=== PATIENT | female | born 1965 | race Caucasian/White ===

== ENCOUNTER → 2016-09-09 | Outpatient (CLI) | payer BC ==
[~2016-09-09] MED LIST: HYDR-5688 PO; LISI-725 PO; MELO15TA4 PO; MULTTAB58 PO; PRT40 PO; SIMV-150 PO; TPRSR/25 PO; VALA1TAB PO; VTMD1000 PO
--- NOTE | 2016-09-10 14:52 | MAMMOGRAPHY REPORT ---
BILATERAL DIGITAL SCREENING MAMMOGRAM TOMOSYNTHESIS WITH CAD: 09/09/2016 CLINICAL HISTORY: Routine screening. Patient has no complaints. TECHNIQUE: Breast tomosynthesis in addition to standard 2D mammography was performed. Current study was also evaluated with a Computer Aided Detection (CAD) system. COMPARISON: Comparison is made to exams dated: 03/29/2012 mammogram - [facility] a nd 06/16/2007. BREAST COMPOSITION: The tissue of both breasts is almost entirely fatty. FINDINGS: No suspicious masses, calcifications, or areas of architectural distortion are noted in e ither breast. There has been no significant interval change compared to prior exams. IMPRESSION: ACR BI-RADS CATEGORY 1: NEGATIVE There is no mammographic evidence of malignancy. A 1 year screening mammogram is recommended. The p atient will receive written notification of the results. Approximately 10% of breast cancers are not detected with mammography. A negative mammographic repor t should not delay biopsy if a clinically suggestive mass is present. Dyana Denson M.D. ah/:09/10/2016 07:25:48 Powder Worker: Jennifer Le RT(R)(M), [facility] letter sent: Normal 1/2 BI-RADS Code: ACR BI-RADS Category 1: Negative
== END | disposition home or self-care (01) ==
LOC: C.MAMM 17:08
PROVIDERS: ATTEND Nurse Practitioner Family
DX: Z12.31 Encounter for screening mammogram for malignant neoplasm of breast (principal)

== ENCOUNTER → 2017-04-19 | Outpatient (CLI) | payer BC ==
--- NOTE | 2017-04-19 18:48 | DIAGNOSTIC IMAGING REPORT ---
LEFT HIP UNILATERAL 2 VIEWS HISTORY: 51 years-old Female PAIN IN LEFT HIP acute left hip pain without reported trauma. Initial exam. COMPARISON: None available. TECHNIQUE: 2 views of the left hip. FINDINGS: Probable phleboliths are seen within the pelvis. The imaged left hemipelvis appears intact. Minimal left sacroiliac joint degenerative changes are noted. No significant degenerative changes are seen involving the left femoral acetabular joint which is located. No fracture identified. IMPRESSION: No acute fracture, dislocation or significant degenerative changes. The above report was generated using voice recognition software. It may contain grammatical, syntax or spelling errors. Electronically signed by: William Longoria M.D. 04/19/2017 6:47 PM Dictated Date/Time: 04/19/2017 6:46 PM
== END | disposition home or self-care (01) ==
LOC: C.RAD 15:36
PROVIDERS: ATTEND Nurse Practitioner Family
DX: M25.552 Pain in left hip (principal)

== ENCOUNTER 2017-05-15 10:12 | Inpatient (IN) | payer BC ==
[~2017-05-15] VITALS: Ht 165.1 cm; Wt 80.0 kg
[~2017-05-15 10:12] MED LIST changes: -HYDR-5688 PO; -PRT40 PO; -TPRSR/25 PO
[2017-05-15] MEDS ORDERED: ONDANSETRON 8 MG/54 ML D5W IV STA (10:37)
[2017-05-15] MEDS ORDERED: SODIUM CHLORIDE 0.9% 1000ML 1,000 ML IV STA ×2 (10:37→13:13)
[2017-05-15] MEDS ORDERED: FAMOTIDINE IV INJ 20 MG in DEXTROSE 5% 100ML 100 ML IV STA (10:37)
--- NOTE | 2017-05-15 10:38 | EMERGENCY ROOM VISIT NOTE ---
History Report prepared by Sandy: Ethel Rogel Under the Supervision of: Dr. Arely Escalera D.O. First contact with patient: 10:22 Chief Complaint: ABDOMINAL PAIN Stated Complaint: ABD. PAIN, VOMITING History of Present Illness The patient is a 51 year old female who presents to the Emergency Room with complaints of intermittent abdominal pain and pressure beginning 1 week ago. The patient states that she has a history of acid reflux and notes that 1 week ago she woke up in the middle of the night from indigestion and nausea. She reports that she had nausea and no vomiting at the time and states that her bowel movements have been alternating between soft and hard. She notes that she has been more stressed lately at work and her acid reflux has not been good. The patient complains of "acid churning" in her stomach, abdominal pressure, back pressure, chills, and sweats. She states that she had 4 episodes of vomiting before coming into the ED today. She denies any leg swelling, fevers, black stool, bloody stools, recent illness, cough, and recent cold. Source of History: patient Onset: 1 week ago Position: abdomen Quality: pressure Timing: intermittent Associated Symptoms: + chills, + nausea, + vomiting, + back pain, No fevers , No cough Note: She denies any leg swelling, black stool, bloody stools, recent illness, and recent cold. Review of Systems See HPI for pertinent positives & negatives. A total of 10 systems reviewed and were otherwise negative. Past Medical & Surgical Medical Problems: (1) Acid reflux (2) Acute cholecystitis (3) Gallstone pancreatitis Family History No pertinent family history stated. Social History Smoking Status: Never Smoker Marital Status: single Occupation Status: employed Current/Historical Medications Scheduled Cholecalciferol (Vitamin D3), 2,000 INTER.UNIT PO QAM Meloxicam (Mobic), 15 MG PO QAM Metoprolol Succinate (Metoprolol Succinate ER), 12.5 MG PO DAILY Multiple Vitamin (Multivitamin), 1 TAB PO QAM Simvastatin (Simvastatin), 1 TAB PO HS Scheduled PRN Valacyclovir (Valtrex), 2 GM PO DAILY PRN for COLD SORES Allergies Coded Allergies: No Known Allergies (Unverified , 10/03/15) Physical Exam Vital Signs Date Time Temp Pulse Resp B/P (MAP) Pulse Ox O2 Delivery O2 Flow Rate FiO2 05/15/17 15:15 95 Room Air 05/15/17 14:34 71 05/15/17 14:24 70 17 116/55 95 Room Air 05/15/17 13:52 65 14 107/63 96 Room Air 05/15/17 13:09 67 20 130/82 97 Room Air 05/15/17 12:51 47 19 138/74 95 Room Air 05/15/17 11:38 45 14 138/64 100 Room Air 05/15/17 10:47 44 05/15/17 10:17 36.5 61 16 126/70 98 Room Air Physical Exam GENERAL: alert, well appearing, well nourished, no distress, non-toxic EYE EXAM: normal conjunctiva, PERRL and EOM's grossly intact OROPHARYNX: no exudate, no erythema, lips, buccal mucosa, and tongue normal and mucous membranes are moist NECK: supple, no nuchal rigidity, no adenopathy, non-tender LUNGS: Clear to auscultation. Normal chest wall mechanics HEART: no murmurs, S1 normal and S2 normal ABDOMEN: abdomen soft, some upper abdominal epigastric tenderness, normo-active bowel sounds, no masses, no rebound or guarding. BACK: Back is symmetrical on inspection and there is no deformity, no midline tenderness, no CVA tenderness. SKIN: no rashes and no bruising UPPER EXTREMITIES: upper extremities are grossly normal. LOWER EXTREMITIES: No pitting edema. NEURO EXAM: Normal sensorium, cranial nerves II-XII grossly intact, normal speech, no gross weakness of arms, no gross weakness of legs. Medical Decision & Procedures ER Provider Diagnostic Interpretation: Radiology results have been interpreted by the radiologist and reviewed by me. ABDOMEN LIMITED (US) FINDINGS: Pancreas: Largely obscured due to overlying bowel gas. Liver: Moderately hyperechogenic parenchyma with partial obscuration of the right hemidiaphragm, likely indicating moderate steatosis. The liver measures cm in maximal sagittal dimension. No sonographic evidence of hepatic mass. Main portal vein patent with normal directional flow. Biliary: No intrahepatic biliary ductal dilatation. Common bile duct measures up to 7 mm in diameter. Gallbladder: Gallbladder distended containing multiple gallstones. Mild gallbladder wall thickening and small amount of air cholecystic fluid. The gallbladder mucosa is somewhat irregular in areas. Right kidney: Normal in appearance. No hydronephrosis. Ascites: None. IMPRESSION: 1. Findings consistent with acute cholecystitis. 2. Hepatic steatosis. Electronically signed by: Remy Mario M.D. 05/15/2017 2:19 PM Dictated Date/Time: 05/15/2017 2:16 PM Laboratory Results 05/15/17 11:36 Red Blood Count 5.05, Mean Corpuscular Volume 84.4, Mean Corpuscular Hemoglobin 28.3, Mean Corpuscular Hemoglobin Concent 33.6, Mean Platelet Volume 9.8, Neutrophils (%) (Auto) 75.2, Lymphocytes (%) (Auto) 14.5, Monocytes (%) (Auto) 9.7, Eosinophils (%) (Auto) 0.2, Basophils (%) (Auto) 0.2, Neutrophils # (Auto) 6.46, Lymphocytes # (Auto) 1.25, Monocytes # (Auto) 0.83, Eosinophils # (Auto) 0.02, Basophils # (Auto) 0.02 05/15/17 11:36 Test 05/15/17 11:36 05/15/17 11:40 05/15/17 12:44 White Blood Count 8.60 K/uL (4.8-10.8) Red Blood Count 5.05 M/uL (4.2-5.4) Hemoglobin 14.3 g/dL (12.0-16.0) Hematocrit 42.6 % (37-47) Mean Corpuscular Volume 84.4 fL (80-100) Mean Corpuscular Hemoglobin 28.3 pg (25-34) Mean Corpuscular Hemoglobin Concent 33.6 g/dl (32-36) Platelet Count 237 K/uL (130-400) Mean Platelet Volume 9.8 fL (7.4-10.4) Neutrophils (%) (Auto) 75.2 % Lymphocytes (%) (Auto) 14.5 % Monocytes (%) (Auto) 9.7 % Eosinophils (%) (Auto) 0.2 % Basophils (%) (Auto) 0.2 % Neutrophils # (Auto) 6.46 K/uL (1.4-6.5) Lymphocytes # (Auto) 1.25 K/uL (1.2-3.4) Monocytes # (Auto) 0.83 K/uL (0.11-0.59) Eosinophils # (Auto) 0.02 K/uL (0-0.5) Basophils # (Auto) 0.02 K/uL (0-0.2) RDW Standard Deviation 39.7 fL (36.4-46.3) RDW Coefficient of Variation 13.1 % (11.5-14.5) Immature Granulocyte % (Auto) 0.2 % Immature Granulocyte # (Auto) 0.02 K/uL (0.00-0.02) Anion Gap 10.0 mmol/L (3-11) Est Creatinine Clear Calc Drug Dose 98.5 ml/min Estimated GFR () 115.2 Estimated GFR (Non- 99.4 BUN/Creatinine Ratio 30.1 (10-20) Calcium Level 9.3 mg/dl (8.5-10.1) Total Bilirubin 0.9 mg/dl (0.2-1) Aspartate Amino Transf (AST/SGOT) 490 U/L (15-37) Alanine Aminotransferase (ALT/SGPT) 569 U/L (12-78) Alkaline Phosphatase 123 U/L (45-117) Troponin I < 0.015 ng/ml (0-0.045) Total Protein 7.5 gm/dl (6.4-8.2) Albumin 3.6 gm/dl (3.4-5.0) Globulin 3.9 gm/dl (2.5-4.0) Albumin/Globulin Ratio 0.9 (0.9-2) Amylase Level 3546 U/L (25-115) Lipase 07932 U/L (73-393) Human Chorionic Gonadotropin, Qual NEG (NEG) Hepatitis C Antibody Screen NEG (NEG) Lactic Acid Level 0.7 mmol/L (0.4-2.0) Urine Color YELLOW Urine Appearance CLEAR (CLEAR) Urine pH 5.0 (4.5-7.5) Urine Specific [place] 1.018 (1.000-1.030) Urine Protein NEG (NEG) Urine Glucose (UA) NEG (NEG) Urine Ketones 1+ (NEG) Urine Occult Blood TRACE (NEG) Urine Nitrite NEG (NEG) Urine Bilirubin NEG (NEG) Urine Urobilinogen NEG (NEG) Urine Leukocyte Esterase NEG (NEG) Urine WBC (Auto) 1-5 /hpf (0-5) Urine RBC (Auto) 0-4 /hpf (0-4) Urine Hyaline Casts (Auto) 0 /lpf (0-5) Urine Epithelial Cells (Auto) 0-5 /lpf (0-5) Urine Bacteria (Auto) NEG (NEG) Laboratory results per my review. Medications Administered Medications (Trade) Dose Ordered Sig/Mae Route Start Time Stop Time Status Last Admin Dose Admin Sodium Chloride 1,000 ml @ 999 mls/hr Q1H1M STAT IV 05/15/17 10:37 05/15/17 11:37 DC 05/15/17 11:33 999 MLS/HR Ondansetron HCl (Zofran 8mg Iv) 8 mg NOW STAT IV 05/15/17 10:37 05/15/17 10:40 DC 05/15/17 11:34 8 MG Famotidine 20 mg/ Dextrose 102 ml @ 200 mls/hr NOW STAT IV 05/15/17 10:37 05/15/17 11:07 DC 05/15/17 11:34 200 MLS/HR Al Hydroxide/Mg Hydroxide (Maalox Susp) 15 ml NOW STAT PO 05/15/17 11:05 05/15/17 11:06 DC 05/15/17 11:34 15 ML Morphine Sulfate (MoRPHine SULFATE INJ) 4 mg NOW STAT IV 05/15/17 12:57 05/15/17 12:58 DC 05/15/17 13:05 4 MG Sodium Chloride 1,000 ml @ 125 mls/hr Q8H STAT IV 05/15/17 13:13 05/15/17 17:12 DC 05/15/17 13:50 125 MLS/HR Hydromorphone HCl (Dilaudid Inj) 0.5 mg NOW STAT IV 05/15/17 13:44 05/15/17 13:45 DC 05/15/17 13:50 0.5 MG Hydromorphone HCl (Dilaudid Inj) 0.5 mg NOW STAT IV 05/15/17 14:30 05/15/17 14:31 DC 05/15/17 14:38 0.5 MG Piperacillin Sod/ Tazobactam Sod (Zosyn Iv) 4.5 gm NOW STAT IV 05/15/17 14:49 05/15/17 15:30 DC 05/15/17 15:52 4.5 GM ECG Indication: abdominal pain Rate (beats per minute): 45 Rhythm: sinus bradycardia Findings: no acute ischemic change, other (normal axis, normal intervals) ED Course 1022: The patient was evaluated in room A2. A complete history and physical exam was performed. 1037: Famotidine 20mg/Dextrose 102ml @ 200mls/hr IV, Zofran 8mg IV, Sodium Chloride 1000 ml @ 999 mls/hr IV. 1105: Maalox Susp 1ml PO. 1257: Morphine Sulfate 4mg IV. 1313: I reevaluated and updated the patient. She is still having pain. 1313: Sodium Chloride 1000 ml @ 125 mls/hr IV. 1344: Dilaudid Inj 0.5mg IV. 1430: I updated the patient about her results. She is still having pain. 1430: Dilaudid Inj 0.5mg IV. 1436: I reviewed the patient's case with Dr. Padgett of Surgery. 1449: Zosyn IV 4.5gm IV. 1500: Zosyn 1ea PRN N/A Consult. 1505: I reviewed the patient's case with Dr. Liz of [facility]. He will evaluate the patient for further management. 1512: Upon reevaluation, the patient is doing well. I discussed the findings and the treatment plan with the patient. She expresses agreement and understanding. I spoke with Dr. Liz of the [facility] Hospitalist Service. She will be evaluated for further management. Medical Decision Differential diagnosis: Etiologies such as appendicitis, diverticulitis, PUD, biliary pathology, UTI, pancreatitis, obstruction, mesenteric ischemia, aortic pathology, infections, inflammatory bowel disease, renal colic, as well as others were entertained. Pt with acute pancreatitis, likely from gallstones/biliary disease. No bacteremia/sepsis. Doubt other acute GI pathology. Doubt ascending cholangitis. Doubt perf. Pt with stable VS. Medication Reconcilliation Current Medication List: was personally reviewed by me Blood Pressure Screening Patient's blood pressure: Normal blood pressure Blood pressure disposition: Did not require urgent referral Consults Time Called: 1430 Consulting Physician: Dr. Padgett - Surgery Returned Call: [phone] I reviewed the patient's case with Dr. Padgett of Surgery. Additional Consults: Time Called: 1501 Consulted Physician: Dr. Liz - [facility] Returned Call: [phone] Additional Comments: I reviewed the patient's case with Dr. Liz of [facility]. He will evaluate the patient for further management. Impression Primary Impression: Pancreatitis Additional Impressions: Cholecystitis Abdominal pain Scribe Attestation The scribe's documentation has been prepared under my direction and personally reviewed by me in its entirety. I confirm that the note above accurately reflects all work, treatment, procedures, and medical decision making performed by me. Departure Information Dispostion Being Evaluated By Hospitalist Referrals Carrie Rodriguez C.R.N.PAlycia (PCP) Patient Instructions My [facility] Problem Qualifiers Primary Impression: Pancreatitis Chronicity: acute Pancreatitis type: biliary Acute pancreatitis complication: unspecified Qualified Codes: K85.10 - Biliary acute pancreatitis without necrosis or infection Additional Impressions: Abdominal pain Abdominal location: epigastric Qualified Codes: R10.13 - Epigastric pain
[2017-05-15] MEDS ORDERED: ALUMINUM/MAGNESIUM SUSP 30 ML UDC PO STA (11:05)
[2017-05-15] MEDS ORDERED: TPRSR/25 PO (11:07)
[2017-05-15 11:58] LABS: HEMATOCRIT 42.6 % (37-47); MEAN CELL VOLUME 84.4 fL (80-100); MEAN CORPUSCULAR HEMOGLOBIN 28.3 pg (25-34); MEAN CORPUSCULAR HGB CONC 33.6 g/dl (32-36); MEAN PLATELET VOLUME 9.8 fL (7.4-10.4); PLATELET COUNT 237 K/uL (130-400); RED BLOOD COUNT 5.05 M/uL (4.2-5.4)
[2017-05-15 12:15] LABS: ALT/SGPT 569 U/L (12-78); BLOOD UREA NITROGEN 21 mg/dl (7-18); BUN/CREATININE RATIO 30.1 (10-20); CALCIUM 9.3 mg/dl (8.5-10.1); CARBON DIOXIDE 22 mmol/L (21-32); CHLORIDE 107 mmol/L (98-107); CREATININE 0.69 mg/dl (0.60-1.20); GLUCOSE 129 mg/dl (70-99); POTASSIUM 3.7 mmol/L (3.5-5.1); SODIUM 139 mmol/L (136-145)
[2017-05-15 12:20] LABS: ALB/GLOB RATIO 0.9 (0.9-2); ALKALINE PHOSPHATASE 123 U/L (45-117); AST/SGOT 490 U/L (15-37)
[2017-05-15 12:23] LABS: PREG INTERNAL NEGATIVE QC NEG CLEAR BACKGROUND; PREG INTERNAL POSITIVE QC POS CONTROL LINE
[2017-05-15 12:40] LABS: BASO % 0.2 %; BASO ABS # 0.02 K/uL (0-0.2); COMPLETE YES; EOS % 0.2 %; IG% 0.2 %; LYMPH % 14.5 %; LYMPH ABS # 1.25 K/uL (1.2-3.4); MONO % 9.7 %; NEUT % 75.2 %
[2017-05-15] MEDS ORDERED: MoRPHine SULFATE 4 MG/ML 1 ML CARP\\VIAL IV STA (12:57)
[2017-05-15 13:18] LABS: URINE APPEARANCE CLEAR (CLEAR); URINE BILIRUBIN NEG (NEG); URINE COLOR YELLOW; URINE EPITHELIAL CELL AUTO 0-5 /lpf (0-5); URINE NITRITE NEG (NEG); URINE SPECIFIC GRAVITY 1.018 (1.000-1.030); UROBILINOGEN NEG (NEG); ZZUR CULT IF INDIC CLEAN CATCH NO
[2017-05-15 13:27] LABS: MANUAL MICROSCOPIC REQUIRED? NO; REVIEW REQ? NO
[2017-05-15] MEDS ORDERED: HYDROmorphone INJ 0.5 MG/0.5 ML SYR IV STA ×2 (13:44→14:30)
--- NOTE | 2017-05-15 14:21 | DIAGNOSTIC IMAGING REPORT ---
ABDOMEN LIMITED (US) CLINICAL HISTORY: 51 years-old Female presenting with abd pain, elevated lft's. TECHNIQUE: Real-time grayscale and limited color Doppler ultrasound imaging of the abdomen limited to the right upper quadrant was performed. COMPARISON: None. FINDINGS: Pancreas: Largely obscured due to overlying bowel gas. Liver: Moderately hyperechogenic parenchyma with partial obscuration of the right hemidiaphragm, likely indicating moderate steatosis. The liver measures cm in maximal sagittal dimension. No sonographic evidence of hepatic mass. Main portal vein patent with normal directional flow. Biliary: No intrahepatic biliary ductal dilatation. Common bile duct measures up to 7 mm in diameter. Gallbladder: Gallbladder distended containing multiple gallstones. Mild gallbladder wall thickening and small amount of air cholecystic fluid. The gallbladder mucosa is somewhat irregular in areas. Right kidney: Normal in appearance. No hydronephrosis. Ascites: None. IMPRESSION: 1. Findings consistent with acute cholecystitis. 2. Hepatic steatosis. Electronically signed by: Remy Mario M.D. 05/15/2017 2:19 PM Dictated Date/Time: 05/15/2017 2:16 PM
[2017-05-15] MEDS ORDERED: PIPERACILLIN/TAZOBACTAM 4.5 GM/100ML D5W IV STA (14:49)
[2017-05-15] MEDS ORDERED: PIPERACILL/TAZOBAC CONSULT ACTIVE PRN (15:00)
[2017-05-15 15:15] VITALS: O2SAT 95; Ht 165.1 cm; Wt 80.0 kg
[2017-05-15] MEDS ORDERED: PIPERACILLIN/TAZOBACTAM 4.5 GM/100ML D5W ONE (15:30)
[2017-05-15] MEDS ORDERED: ONDANSETRON INJ 2 MG/ML 2 ML VIAL IV PRN (15:45)
--- NOTE | 2017-05-15 16:02 | History and Physical ---
History & Physical Date & Time of Service: May 15, 2017 at 15:50 Chief Complaint: Abd. Pain, Vomiting Primary Care Physician: Carrie Rodriguez C.R.N.P. History of Present Illness Source: patient The patient is a 51-year-old female who presents to the emergency department with worsening intermittent abdominal pain, pressure, chills, sweats and nausea that began about one week prior to arrival. She has not had any vomiting until having 4 episodes prior to coming into the ED today. She does report a change in her bowel movements alternating between soft and hard. She felt that her acid reflux have been worse in general recently due to work stress. She has not had any recent travels or sick exposures Past Medical/Surgical History Medical Problems: (1) Acid reflux Status: Chronic Family History Noncontributory Social History Smoking Status: Never Smoker Smokeless Tobacco Use: No Alcohol Use: none Drug Use: none Marital Status: single Occupational Status: employed Immunizations History of Influenza Vaccine: Unknown History of Tetanus Vaccine?: Unknown History of Pneumococcal: Unknown History of Hepatitis B Vaccine: Unknown Multi-Drug Resistant Organisms History of MDRO: No Allergies Coded Allergies: No Known Allergies (Unverified , 10/03/15) Home Medications Scheduled Cholecalciferol (Vitamin D3), 2,000 INTER.UNIT PO QAM Meloxicam (Mobic), 15 MG PO QAM Metoprolol Succinate (Metoprolol Succinate ER), 12.5 MG PO DAILY Multiple Vitamin (Multivitamin), 1 TAB PO QAM Simvastatin (Simvastatin), 1 TAB PO HS Scheduled PRN Valacyclovir (Valtrex), 2 GM PO DAILY PRN for COLD SORES Review of Systems The patient denies chest pain, palpitations, shortness of breath, cough, lower extremity swelling, vision change, hearing change, sore throat, blood in urine or stool, dysuria, urinary frequency or urgency, lightheadedness , dizziness, headache, memory loss, rash, abnormal bruising or bleeding, imbalance, focal or generalized weakness, numbness or tingling in arms or legs, generalized arthralgias or myalgias, back or neck pain, or night sweats. The review of systems is otherwise negative other than for that already noted above, and at least 10 systems have been reviewed. Physical Exam Vital Signs Date Time Temp Pulse Resp B/P (MAP) Pulse Ox O2 Delivery O2 Flow Rate FiO2 05/15/17 15:15 95 Room Air 05/15/17 14:34 71 05/15/17 14:24 70 17 116/55 95 Room Air 05/15/17 13:52 65 14 107/63 96 Room Air 05/15/17 13:09 67 20 130/82 97 Room Air 05/15/17 12:51 47 19 138/74 95 Room Air 05/15/17 11:38 45 14 138/64 100 Room Air 05/15/17 10:47 44 05/15/17 10:17 36.5 61 16 126/70 98 Room Air The patient is awake, alert and oriented 3, looks ill, normocephalic and atraumatic, lying in bed and in no acute distress. HEENT--PERRL, EOMI, mucous membranes and oropharynx dry. Neck--supple, no JVD or bruits, thyroid normal, trachea midline, no adenopathy. Heart--normal S1 and S2, no extra beats, no murmurs, rubs or gallops. Lungs--clear bilaterally with good air movement, no respiratory distress, no accessory muscle use. Abdomen--normal bowel sounds and soft, tender right upper quadrant and epigastric discomfort. Nondistended, no hernias or masses, no organomegaly. Extremities--no cyanosis, clubbing or edema. There are good distal pulses b/l. Dermatologic--normal skin turgor, normal color, warm and dry, no abnormal lymph nodes, no rash. Neurologic--cranial nerves II through XII grossly intact, motor and sensory examination normal. Rheumatologic--normal range of motion, nontender, muscles and joints. Psychiatric--normal affect. Diagnostics Laboratory Results Results Past 24 Hours Test 05/15/17 11:36 05/15/17 11:40 05/15/17 12:44 Range/Units White Blood Count 8.60 4.8-10.8 K/uL Red Blood Count 5.05 4.2-5.4 M/uL Hemoglobin 14.3 12.0-16.0 g/dL Hematocrit 42.6 37-47 % Mean Corpuscular Volume 84.4 80-100 fL Mean Corpuscular Hemoglobin 28.3 25-34 pg Mean Corpuscular Hemoglobin Concent 33.6 32-36 g/dl Platelet Count 237 130-400 K/uL Mean Platelet Volume 9.8 7.4-10.4 fL Neutrophils (%) (Auto) 75.2 % Lymphocytes (%) (Auto) 14.5 % Monocytes (%) (Auto) 9.7 % Eosinophils (%) (Auto) 0.2 % Basophils (%) (Auto) 0.2 % Neutrophils # (Auto) 6.46 1.4-6.5 K/uL Lymphocytes # (Auto) 1.25 1.2-3.4 K/uL Monocytes # (Auto) 0.83 0.11-0.59 K/uL Eosinophils # (Auto) 0.02 0-0.5 K/uL Basophils # (Auto) 0.02 0-0.2 K/uL RDW Standard Deviation 39.7 36.4-46.3 fL RDW Coefficient of Variation 13.1 11.5-14.5 % Immature Granulocyte % (Auto) 0.2 % Immature Granulocyte # (Auto) 0.02 0.00-0.02 K/uL Sodium Level 139 136-145 mmol/L Potassium Level 3.7 3.5-5.1 mmol/L Chloride Level 107 98-107 mmol/L Carbon Dioxide Level 22 21-32 mmol/L Anion Gap 10.0 3-11 mmol/L Blood Urea Nitrogen 21 7-18 mg/dl Creatinine 0.69 0.60-1.20 mg/dl Est Creatinine Clear Calc Drug Dose 98.5 ml/min Estimated GFR () 115.2 Estimated GFR (Non- 99.4 BUN/Creatinine Ratio 30.1 10-20 Random Glucose 129 70-99 mg/dl Calcium Level 9.3 8.5-10.1 mg/dl Total Bilirubin 0.9 0.2-1 mg/dl Aspartate Amino Transf (AST/SGOT) 490 15-37 U/L Alanine Aminotransferase (ALT/SGPT) 569 12-78 U/L Alkaline Phosphatase 123 45-117 U/L Troponin I < 0.015 0-0.045 ng/ml Total Protein 7.5 6.4-8.2 gm/dl Albumin 3.6 3.4-5.0 gm/dl Globulin 3.9 2.5-4.0 gm/dl Albumin/Globulin Ratio 0.9 0.9-2 Lipase 78839 73-393 U/L Human Chorionic Gonadotropin, Qual NEG NEG Lactic Acid Level 0.7 0.4-2.0 mmol/L Urine Color YELLOW Urine Appearance CLEAR CLEAR Urine pH 5.0 4.5-7.5 Urine Specific [place] 1.018 1.000-1.030 Urine Protein NEG NEG Urine Glucose (UA) NEG NEG Urine Ketones 1+ NEG Urine Occult Blood TRACE NEG Urine Nitrite NEG NEG Urine Bilirubin NEG NEG Urine Urobilinogen NEG NEG Urine Leukocyte Esterase NEG NEG Urine WBC (Auto) 1-5 0-5 /hpf Urine RBC (Auto) 0-4 0-4 /hpf Urine Hyaline Casts (Auto) 0 0-5 /lpf Urine Epithelial Cells (Auto) 0-5 0-5 /lpf Urine Bacteria (Auto) NEG NEG Diagnostic Radiology Patient Name: DANIAL YOUNG Unit Number: [id number] Dictated: 05/15/171415 Transcribed: 05/15/171415 PBS Printed Date/Time: [~ rep prt dt]/[~ rep prt tm] [~ rep ct labl] - [~ rep ct ivnm] [facility] Radiology Department [place], [place] [address] Dictated: 05/15/171415 Transcribed: 05/15/171415 PBS Printed Date/Time: [~ rep prt dt]/[~ rep prt tm] [~ rep ct labl] - [~ rep ct ivnm] [~ rep ct add3]] ABDOMEN LIMITED (US) CLINICAL HISTORY: 51 years-old Female presenting with abd pain, elevated lft's. TECHNIQUE: Real-time grayscale and limited color Doppler ultrasound imaging of the abdomen limited to the right upper quadrant was performed. COMPARISON: None. FINDINGS: Pancreas: Largely obscured due to overlying bowel gas. Liver: Moderately hyperechogenic parenchyma with partial obscuration of the right hemidiaphragm, likely indicating moderate steatosis. The liver measures cm in maximal sagittal dimension. No sonographic evidence of hepatic mass. Main portal vein patent with normal directional flow. Biliary: No intrahepatic biliary ductal dilatation. Common bile duct measures up to 7 mm in diameter. Gallbladder: Gallbladder distended containing multiple gallstones. Mild gallbladder wall thickening and small amount of air cholecystic fluid. The gallbladder mucosa is somewhat irregular in areas. Right kidney: Normal in appearance. No hydronephrosis. Ascites: None. IMPRESSION: 1. Findings consistent with acute cholecystitis. 2. Hepatic steatosis. Electronically signed by: Remy Mario M.D. 05/15/2017 2:19 PM Dictated Date/Time: 05/15/2017 2:16 PM The status of this report is Signed. Draft = Not yet reviewed or approved by Radiologist. Signed = Reviewed and approved by Radiologist. <AttendingPhy></AttendingPhy> <FamilyPhy>Carrie Rodriguez, C.R.N.P.</FamilyPhy> <PrimaryPhy>Carrie Rodriguez C.R.N.P.</PrimaryPhy> <UnitNumber>[id number]</ UnitNumber> <VisitNumber>[id number]</VisitNumber> <PatientName>DANIAL YOUNG</PatientName> <DateOfBirth>1965</DateOfBirth> <Location>[facility]</ Location> <ServiceDate>05/15/17</ServiceDate> <MNE>ESINDI</MNE> <OrderingPhy> Phetejas, Arely S DO</OrderingPhy> <OrderingPhyMNE>f rep ord dr archuleta</ OrderingPhyMNE> <DictatingPhyMNE>f rep dict dr archuleta</DictatingPhyMNE> <CCListMNE> f rep ct kathe</CCListMNE> <AdmittingPhyMNE>f pt admit dr archuleta</AdmittingPhyMNE> < AttendingPhyMNE>f pt attend dr archuleta</AttendingPhyMNE> <ConsultingPhyMNE>f pt consult dr archuleta</ConsultingPhyMNE> <FamilyPhyMNE>f pt fam dr archuleta</FamilyPhyMNE> <OtherPhyMNE>f pt other dr archuleta</OtherPhyMNE> < PrimaryPhyMNE>f pt prim care dr archuleta</PrimaryPhyMNE> <ReferringPhyMNE>f pt referring dr archuleta</ReferringPhyMNE> EKG EKG shows sinus bradycardia at 45 bpm, no acute ST-T changes. Impression Assessment and Plan Acute cholecystitis with pancreatitis-- Admit to the medical surgical floor. Nothing by mouth except medications. Zosyn 3.375 mg IV every 8 hours NSS with KCl 20 mEq at 100 mils per hour. Zofran 4 mg IV every 6 hours when necessary. Famotidine 20 mg IV every 12 hours. Dilaudid 0.5 mg IV every 2 hours when necessary. Serial CBC with differential, BMP, LFTs, amylase and lipase. Consult general surgery. Hypertension-- Continue metoprolol succinate ER 12.5 mg by mouth daily with hold parameters. Hyperlipidemia-- Hold simvastatin. Osteoarthritis-- Hold meloxicam. Level of Care Med/Surg Advanced Directives Existing Advance Directive: No Existing Living Will: Yes Existing Power of Rod Bending Machine Operator: Yes Resuscitation Status FULL RESUSCITATION VTE Prophylaxis VTE Risk Assessment Done? Y/N: Yes Risk Level: Moderate Given or contraindicated: SCD's Social Service Consult None Apply
[2017-05-15 17:00] VITALS: BP 130/83; PULSE 57; TEMP 36.9; O2SAT 97
[2017-05-15] MEDS: HYDROmorphone INJ 0.5 MG/0.5 ML SYR IV PRN ×3 (17:49→22:28)
[2017-05-15] MEDS: LACTATED RINGER'S 1000ML 1,000 ML IV SCH (20:07)
[2017-05-15] MEDS ORDERED: DOCUSATE SODIUM 100 MG CAP PO ONE (20:30)
[2017-05-15] MEDS: FAMOTIDINE IV INJ 20 MG in DEXTROSE 5% 100ML 100 ML IV SCH (20:32)
[2017-05-15] MEDS: PIPERACILL/TAZOBAC IV 3.375 GM in DEXTROSE 5% 100ML 100 ML IV SCH (22:28)
[2017-05-15 22:55] VITALS: BP 110/67; PULSE 70; TEMP 37.1; O2SAT 94
[2017-05-16] MEDS: HYDROmorphone INJ 0.5 MG/0.5 ML SYR IV PRN ×10 (00:29→21:42)
[2017-05-16] MEDS: LACTATED RINGER'S 1000ML 1,000 ML IV SCH ×3 (04:17→21:41)
[2017-05-16] MEDS: PIPERACILL/TAZOBAC IV 3.375 GM in DEXTROSE 5% 100ML 100 ML IV SCH ×3 (05:28→21:41)
[2017-05-16 06:28] LABS: BASO % 0.1 %; BASO ABS # 0.01 K/uL (0-0.2); COMPLETE YES; EOS % 0.3 %; HEMATOCRIT 41.9 % (37-47); IG% 0.4 %; LYMPH % 15.3 %; LYMPH ABS # 1.62 K/uL (1.2-3.4); MEAN CELL VOLUME 85.2 fL (80-100); MEAN CORPUSCULAR HEMOGLOBIN 29.3 pg (25-34); MEAN CORPUSCULAR HGB CONC 34.4 g/dl (32-36); MEAN PLATELET VOLUME 10.2 fL (7.4-10.4); MONO % 8.2 %; NEUT % 75.7 %; PLATELET COUNT 232 K/uL (130-400); RED BLOOD COUNT 4.92 M/uL (4.2-5.4); WHITE BLOOD COUNT 10.58 K/uL (4.8-10.8)
[2017-05-16 07:02] LABS: BUN/CREATININE RATIO 22.5 (10-20); CALCIUM 8.9 mg/dl (8.5-10.1); CREATININE 0.71 mg/dl (0.60-1.20); POTASSIUM 3.7 mmol/L (3.5-5.1)
[2017-05-16 07:40] VITALS: BP 125/78; PULSE 69; TEMP 37; O2SAT 97
[2017-05-16] MEDS: METOPROLOL SUCC 25MG EXT REL TAB PO SCH (08:52)
[2017-05-16] MEDS: FAMOTIDINE IV INJ 20 MG in DEXTROSE 5% 100ML 100 ML IV SCH ×2 (08:53→21:41)
--- NOTE | 2017-05-16 11:06 | Surgery Consultation ---
Consultation Date of Consultation: May 16, 2017. Attending Physician: Tila Yuen MD History of Present Illness pt with a week hx of abdominal pain, upper, with worsening symptoms, nausea and vomitting. labs/ct show severe pancreatitis with assoc calculous cholecystitis Past Medical/Surgical History Medical Problems: (1) Abdominal pain Status: Acute (2) Cholecystitis Status: Acute (3) Pancreatitis Status: Acute Social History Smoking Status: Never Smoker Smokeless Tobacco Use: No Alcohol Use: none Drug Use: none Marital Status: single Occupation Status: employed Allergies Coded Allergies: No Known Allergies (Unverified , 10/03/15) Home Medications Scheduled Cholecalciferol (Vitamin D3), 2,000 INTER.UNIT PO QAM Meloxicam (Mobic), 15 MG PO QAM Metoprolol Succinate (Metoprolol Succinate ER), 12.5 MG PO DAILY Multiple Vitamin (Multivitamin), 1 TAB PO QAM Simvastatin (Simvastatin), 1 TAB PO HS Scheduled PRN Valacyclovir (Valtrex), 2 GM PO DAILY PRN for COLD SORES Current Inpatient Medications Current Inpatient Medications Medications (Trade) Dose Ordered Sig/Mae Route Start Time Stop Time Status Last Admin Dose Admin Piperacillin Sod/ Tazobactam Sod (Consult) 1 ea UD PRN N/A 05/15/17 15:00 06/14/17 14:59 Metoprolol Succinate (Toprol Xl Tab) 12.5 mg DAILY PO 05/16/17 09:00 06/15/17 08:59 05/16/17 08:52 12.5 MG Piperacillin Sod/ Tazobactam Sod 3.375 gm/Dextrose 115 ml @ 28.75 mls/ hr Q8H IV 05/15/17 22:00 05/25/17 21:59 05/16/17 05:28 28.75 MLS/HR Ondansetron HCl (Zofran Inj) 4 mg Q6H PRN IV 05/15/17 15:45 06/14/17 15:44 Famotidine 20 mg/ Dextrose 102 ml @ 200 mls/hr Q12H IV 05/15/17 21:00 06/14/17 20:59 05/16/17 08:53 200 MLS/HR Hydromorphone HCl (Dilaudid Inj) 0.5 mg Q2H PRN IV 05/15/17 15:45 10/14/17 15:44 05/16/17 09:12 0.5 MG Lactated Ringer's 1,000 ml @ 125 mls/hr Q8H IV 05/15/17 20:00 06/14/17 19:59 05/16/17 04:17 125 MLS/HR Review of Systems Abdomen: + pain, + nausea, + vomiting Physical Exam Date Time Temp Pulse Resp B/P (MAP) Pulse Ox O2 Delivery O2 Flow Rate FiO2 05/16/17 07:45 Room Air 05/16/17 07:40 37.0 69 16 125/78 (94) 97 Nasal Cannula 05/16/17 00:15 Room Air 05/15/17 22:55 37.1 70 16 110/67 (81) 94 Room Air 05/15/17 18:00 Room Air 05/15/17 17:00 36.9 57 18 130/83 (99) 97 Room Air 05/15/17 16:38 70 133/73 92 05/15/17 15:54 67 18 129/64 93 Room Air 05/15/17 15:15 95 Room Air 05/15/17 14:34 71 05/15/17 14:24 70 17 116/55 95 Room Air 05/15/17 13:52 65 14 107/63 96 Room Air 05/15/17 13:09 67 20 130/82 97 Room Air 05/15/17 12:51 47 19 138/74 95 Room Air 05/15/17 11:38 45 14 138/64 100 Room Air General Appearance: no apparent distress Head: normocephalic, atraumatic Eyes: PERRL, EOMI ENT: hearing grossly normal Neck: supple, no JVD Respiratory/Chest: no respiratory distress, no accessory muscle use Abdomen/GI: soft, + pertinent finding (+epigastric ttp. no g/r/r) Neurologic/Psych: alert, normal mood/affect, oriented x 3 Skin: normal color, warm/dry Laboratory Results Last 24 Hours Test 05/15/17 11:36 05/15/17 11:40 05/15/17 12:44 05/16/17 06:20 White Blood Count 8.60 K/uL 10.58 K/uL Red Blood Count 5.05 M/uL 4.92 M/uL Hemoglobin 14.3 g/dL 14.4 g/dL Hematocrit 42.6 % 41.9 % Mean Corpuscular Volume 84.4 fL 85.2 fL Mean Corpuscular Hemoglobin 28.3 pg 29.3 pg Mean Corpuscular Hemoglobin Concent 33.6 g/dl 34.4 g/dl Platelet Count 237 K/uL 232 K/uL Mean Platelet Volume 9.8 fL 10.2 fL Neutrophils (%) (Auto) 75.2 % 75.7 % Lymphocytes (%) (Auto) 14.5 % 15.3 % Monocytes (%) (Auto) 9.7 % 8.2 % Eosinophils (%) (Auto) 0.2 % 0.3 % Basophils (%) (Auto) 0.2 % 0.1 % Neutrophils # (Auto) 6.46 K/uL 8.01 K/uL Lymphocytes # (Auto) 1.25 K/uL 1.62 K/uL Monocytes # (Auto) 0.83 K/uL 0.87 K/uL Eosinophils # (Auto) 0.02 K/uL 0.03 K/uL Basophils # (Auto) 0.02 K/uL 0.01 K/uL RDW Standard Deviation 39.7 fL 41.8 fL RDW Coefficient of Variation 13.1 % 13.5 % Immature Granulocyte % (Auto) 0.2 % 0.4 % Immature Granulocyte # (Auto) 0.02 K/uL 0.04 K/uL Sodium Level 139 mmol/L 139 mmol/L Potassium Level 3.7 mmol/L 3.7 mmol/L Chloride Level 107 mmol/L 106 mmol/L Carbon Dioxide Level 22 mmol/L 25 mmol/L Anion Gap 10.0 mmol/L 8.0 mmol/L Blood Urea Nitrogen 21 mg/dl 16 mg/dl Creatinine 0.69 mg/dl 0.71 mg/dl Est Creatinine Clear Calc Drug Dose 98.5 ml/min 95.8 ml/min Estimated GFR () 115.2 112.7 Estimated GFR (Non- 99.4 97.2 BUN/Creatinine Ratio 30.1 22.5 Random Glucose 129 mg/dl 96 mg/dl Calcium Level 9.3 mg/dl 8.9 mg/dl Total Bilirubin 0.9 mg/dl 0.5 mg/dl Aspartate Amino Transf (AST/SGOT) 490 U/L 181 U/L Alanine Aminotransferase (ALT/SGPT) 569 U/L 383 U/L Alkaline Phosphatase 123 U/L 104 U/L Troponin I < 0.015 ng/ml Total Protein 7.5 gm/dl 7.4 gm/dl Albumin 3.6 gm/dl 3.3 gm/dl Globulin 3.9 gm/dl Albumin/Globulin Ratio 0.9 Amylase Level 3546 U/L 1037 U/L Lipase 59609 U/L 8291 U/L Human Chorionic Gonadotropin, Qual NEG Hepatitis C Antibody Screen NEG Lactic Acid Level 0.7 mmol/L Urine Color YELLOW Urine Appearance CLEAR Urine pH 5.0 Urine Specific [place] 1.018 Urine Protein NEG Urine Glucose (UA) NEG Urine Ketones 1+ Urine Occult Blood TRACE Urine Nitrite NEG Urine Bilirubin NEG Urine Urobilinogen NEG Urine Leukocyte Esterase NEG Urine WBC (Auto) 1-5 /hpf Urine RBC (Auto) 0-4 /hpf Urine Hyaline Casts (Auto) 0 /lpf Urine Epithelial Cells (Auto) 0-5 /lpf Urine Bacteria (Auto) NEG Magnesium Level 2.0 mg/dl Direct Bilirubin 0.2 mg/dl Assessment & Plan gallstone pancreatitis pt clinically slightly improved bilirubin not elevated...will obtain mrcp to eval bile ducts/pancreas prior to lap caleb labs improving but still show severe pancreatitis will need lap caleb this admission once pancreas quiets down...possibly wednesday but more likely wednesday pending mrcp results. questions answered.
--- NOTE | 2017-05-16 12:43 | Hospitalist Progress Note ---
Hospitalist Progress Note Date of Service May 16, 2017. (Remedios Shepherd ., PA-C) Subjective Pt evaluation today including: conversation w/ patient, physical exam, lab review, review of studies, review of inpatient medication list Voiding: no voiding problems Patient states she is feeling significantly improved since admission. Resting in bed, no signs of acute distress. Currently NPO. IVF infusing. Symptoms started roughly 10 days ago. Abdomen felt bloated and didn't improve. She also admits to emesis prior to arrival in ED. +abdominal pain- IMPROVING. Pain is well controlled w/ IV pain medications. Denies h/o pancreatitis in past. Denies knowledge of gallstones or gallbladder issues. General surgery planning for MRCP and lap caleb- patient denied any questions /concerns. +BM on 05/15- no diarrhea. Patient states she takes Metoprolol for a "flutter." She describes a fluttering sensation radiating to R neck. First occurred ~5 years ago. Workup at that time unremarkable. Symptoms started to reoccur this summer. Repeated EKG, ECHO, and Holter monitor. She was placed on Metoprolol w/ resolution in her symptoms. Does not follow w/ cardiology. Workup completed by PCP. No outpatient records available. h/o pre-DM. Lost 45lbs since September. Patient denies any fever, chills, sweats, lightheadedness, dizziness, vision changes, CP, palpitations, edema, SOB, wheezing, cough, diarrhea, urinary symptoms, melena, numbness/tingling, weakness, muscle/joint pain, anxiety/ depression, active bleeding, or new skin discoloration/changes. (Remedios Shepherd ., PA-C) Medications Current Inpatient Medications Medications (Trade) Dose Ordered Sig/Mae Route Start Time Stop Time Status Last Admin Dose Admin Piperacillin Sod/ Tazobactam Sod (Consult) 1 ea UD PRN N/A 05/15/17 15:00 06/14/17 14:59 Metoprolol Succinate (Toprol Xl Tab) 12.5 mg DAILY PO 05/16/17 09:00 06/15/17 08:59 05/16/17 08:52 12.5 MG Piperacillin Sod/ Tazobactam Sod 3.375 gm/Dextrose 115 ml @ 28.75 mls/ hr Q8H IV 05/15/17 22:00 10/10/17 21:59 05/16/17 05:28 28.75 MLS/HR Ondansetron HCl (Zofran Inj) 4 mg Q6H PRN IV 05/15/17 15:45 06/14/17 15:44 Famotidine 20 mg/ Dextrose 102 ml @ 200 mls/hr Q12H IV 05/15/17 21:00 06/14/17 20:59 05/16/17 08:53 200 MLS/HR Hydromorphone HCl (Dilaudid Inj) 0.5 mg Q2H PRN IV 05/15/17 15:45 05/29/17 15:44 05/16/17 11:07 0.5 MG Lactated Ringer's 1,000 ml @ 125 mls/hr Q8H IV 05/15/17 20:00 06/14/17 19:59 05/16/17 04:17 125 MLS/HR (Remedios Shepherd, PA-C) Objective Vital Signs Date Time Temp Pulse Resp B/P (MAP) Pulse Ox O2 Delivery O2 Flow Rate FiO2 05/16/17 07:45 Room Air 05/16/17 07:40 37.0 69 16 125/78 (94) 97 Nasal Cannula 05/16/17 00:15 Room Air 05/15/17 22:55 37.1 70 16 110/67 (81) 94 Room Air 05/15/17 18:00 Room Air 05/15/17 17:00 36.9 57 18 130/83 (99) 97 Room Air 05/15/17 16:38 70 133/73 92 05/15/17 15:54 67 18 129/64 93 Room Air 05/15/17 15:15 95 Room Air 05/15/17 14:34 71 05/15/17 14:24 70 17 116/55 95 Room Air 05/15/17 13:52 65 14 107/63 96 Room Air 05/15/17 13:09 67 20 130/82 97 Room Air 05/15/17 12:51 47 19 138/74 95 Room Air (Remedios Shepherd, PA-C) Physical Exam General Appearance: no apparent distress Eyes: PERRL ENT: hearing grossly normal Neck: supple Respiratory/Chest: lungs clear, no respiratory distress, no accessory muscle use Cardiovascular: regular rate, rhythm Abdomen: normal bowel sounds, soft, + tenderness (epigastric/RUQ region ) Extremities: no pedal edema, no calf tenderness, + pertinent finding (SCDs on ) Neurologic/Psychiatric: alert, normal mood/affect, oriented x 3 Skin: normal color, warm/dry, no rash (Remedios Shepherd, EFREM) Laboratory Results Last 24 Hours Test 05/15/17 12:44 05/16/17 06:20 Urine Color YELLOW Urine Appearance CLEAR Urine pH 5.0 Urine Specific [place] 1.018 Urine Protein NEG Urine Glucose (UA) NEG Urine Ketones 1+ Urine Occult Blood TRACE Urine Nitrite NEG Urine Bilirubin NEG Urine Urobilinogen NEG Urine Leukocyte Esterase NEG Urine WBC (Auto) 1-5 /hpf Urine RBC (Auto) 0-4 /hpf Urine Hyaline Casts (Auto) 0 /lpf Urine Epithelial Cells (Auto) 0-5 /lpf Urine Bacteria (Auto) NEG White Blood Count 10.58 K/uL Red Blood Count 4.92 M/uL Hemoglobin 14.4 g/dL Hematocrit 41.9 % Mean Corpuscular Volume 85.2 fL Mean Corpuscular Hemoglobin 29.3 pg Mean Corpuscular Hemoglobin Concent 34.4 g/dl Platelet Count 232 K/uL Mean Platelet Volume 10.2 fL Neutrophils (%) (Auto) 75.7 % Lymphocytes (%) (Auto) 15.3 % Monocytes (%) (Auto) 8.2 % Eosinophils (%) (Auto) 0.3 % Basophils (%) (Auto) 0.1 % Neutrophils # (Auto) 8.01 K/uL Lymphocytes # (Auto) 1.62 K/uL Monocytes # (Auto) 0.87 K/uL Eosinophils # (Auto) 0.03 K/uL Basophils # (Auto) 0.01 K/uL RDW Standard Deviation 41.8 fL RDW Coefficient of Variation 13.5 % Immature Granulocyte % (Auto) 0.4 % Immature Granulocyte # (Auto) 0.04 K/uL Sodium Level 139 mmol/L Potassium Level 3.7 mmol/L Chloride Level 106 mmol/L Carbon Dioxide Level 25 mmol/L Anion Gap 8.0 mmol/L Blood Urea Nitrogen 16 mg/dl Creatinine 0.71 mg/dl Est Creatinine Clear Calc Drug Dose 95.8 ml/min Estimated GFR () 112.7 Estimated GFR (Non- 97.2 BUN/Creatinine Ratio 22.5 Random Glucose 96 mg/dl Calcium Level 8.9 mg/dl Magnesium Level 2.0 mg/dl Total Bilirubin 0.5 mg/dl Direct Bilirubin 0.2 mg/dl Aspartate Amino Transf (AST/SGOT) 181 U/L Alanine Aminotransferase (ALT/SGPT) 383 U/L Alkaline Phosphatase 104 U/L Total Protein 7.4 gm/dl Albumin 3.3 gm/dl Amylase Level 1037 U/L Lipase 8291 U/L (Remedios Shepherd, PALinda) Assessment and Plan The patient is a 51-year-old female who presents to the emergency department with worsening intermittent abdominal pain, pressure, chills, sweats and nausea that began about one week prior to arrival. She has not had any vomiting until having 4 episodes prior to coming into the ED today. She does report a change in her bowel movements alternating between soft and hard. She felt that her acid reflux have been worse in general recently due to work stress. She has not had any recent travels or sick exposures Acute cholecystitis due to cholelithiasis w/ pancreatitis: - Admit to the med/surg - NPO except meds - Zosyn 3.375 mg IV every 8 hours - IVF @ 125 ml/hr - Zofran 4 mg IV every 6 hours when necessary. - Famotidine 20 mg IV every 12 hours. - Dilaudid 0.5 mg IV every 2 hours when necessary. - Serial CBC with differential, BMP, LFTs, amylase and lipase -- CBC and BMP- STABLE -- Elevated LFTs, amylase, and lipase- IMPROVING - Consult general surgery, appreciate recommendations -- MRCP pending -- Planning for lap caleb once pancreatitis improves ?Arrhythmia: - Continue Metoprolol succinate ER 12.5 mg daily w/ hold parameters - Per patient, has some type of "flutter"- denies a.fib/a.flutter- states she was workup up this past summer w/ EKGs, ECHO, and Holter monitor- placed on Metoprolol and symptoms improved- no outpatient records available HTN: Metoprolol as above Hyperlipidemia: Hold Simvastatin 10 mg HS until tolerating PO Osteoarthritis: Hold Meloxicam 15 mg QAM until tolerating PO GI Prophylaxis: Pepcid DVT prophylaxis: TEDs/SCDs, ambulation Code Status: LEVEL I, FULL Dispo: From home, no discharge needs anticipated (Remedios Shepherd, EFREM) Reviewed: Pt Seen/Exam by Me (Tila Yuen MD) History Physician Development Assistant Supervision Note: I interviewed and examined the patient. Discussed with AMBER Shepherd and agree with findings and plan as documented in the note. Any exceptions or clarifications are listed here: Pt feeling better, abd pain is subsiding. MRCP reviewed with her--> no CBD dilatation, shows gallstones and acute cholecystitis and pancreatitis With pt's verbal permission, I obtained access to her [facility] records through a [facility] MD--> Holter monitor showed rare ventricular trigeminy, and PACs, no blocks, and no correlation of symptoms with any abnormality. ECHO showed LVEF 65 %,no WMAs, otherwise normal. LFTs trending downward, lipase and amylase trending downward Vitals reviewed NAD, AAOx3 RRR no mgr CTAB no wcr Abd +hypoactive BS, soft, +TTP RUQ and epigastric region without guarding or rebound Ext no edema, 2+ DP pulses 51 yo female with a h/o PVCs, PACs, here with acute cholecystitis and acute gallstone pancreatitis--> pancreatitis improving, no CBD dilatation on MRCP. -plan to continue NPO -increase IVFs to 150 mls/hr -continue Zosyn -plan for likely caleb on Wednesday -follow LFTs, lipase DVT Proph-add heparin SQ Documented By: Tila Yuen (Tila Yuen MD)
--- NOTE | 2017-05-16 13:52 | DIAGNOSTIC IMAGING REPORT ---
MRCP HISTORY: 51 years-old Female pancreatitis cholelithiasis with suggestive acute cholecystitis described on comparison ultrasound. The patient also presents with pancreatitis. COMPARISON: Ultrasound of the abdomen 05/15/2017 TECHNIQUE: MRCP was conducted without contrast according to institutional protocol FINDINGS: Pancreatic duct appears normal without dilation. No evidence of pancreatic divisum. No focal filling defect identified within the cystic duct or common bile duct. Common bile duct measures 6 mm transversely, within normal limits. No intrahepatic biliary ductal dilation. The gallbladder is distended measuring up to 12 x 3.6 x 3.6 cm. Multiple stones and heterogeneous material are noted within the gallbladder fundus suggesting sludge with an apparent mucosal fold or less likely a stricture seen within the mid portion of the gallbladder, notably on image 51 of series 5. There are a few dependent gallstones seen within the proximal gallbladder lumen as seen on image 15 of series 4 without definite gallstones seen within the region of the gallbladder neck. Mild amount of pericholecystic fluid is noted. There is also mild amount of gallbladder wall thickening. Mild peripancreatic fluid is also noted which tracks along the bilateral pericolic gutters and along Gerota's fascia. No pancreatic mass identified. There is mild amount of free fluid within the pelvis. Mild nonspecific perinephric stranding is also present bilaterally. Trace left pleural effusion. IMPRESSION: 1. Cholelithiasis with probable acute cholecystitis redemonstrated. Prominent amount of stones are seen within the gallbladder fundus with an apparent mid gallbladder mucosal fold or less likely a focal stricture as above. 2. No cystic duct or common bile duct dilation or obstructing biliary stones identified. 3. Mild amount of edema within the anterior pararenal space and also tracking along the bilateral pericolic gutters suggests associated mild pancreatitis. Correlate with lipase level. 4. Trace left pleural effusion. The above report was generated using voice recognition software. It may contain grammatical, syntax or spelling errors. Electronically signed by: William Longoria M.D. 05/16/2017 1:51 PM Dictated Date/Time: 05/16/2017 1:41 PM
[2017-05-16 16:16] VITALS: TEMP 37.7
[2017-05-16 23:15] VITALS: BP 121/74; PULSE 71; TEMP 37.3; O2SAT 94
[2017-05-17] VITALS (8 sets, daily range): BP systolic 109–132; BP diastolic 58–83; PULSE 63–79; TEMP 36.4–37.2; O2SAT 93–98
[2017-05-17] MEDS: HYDROmorphone INJ 0.5 MG/0.5 ML SYR IV PRN ×6 (00:07→18:59)
[2017-05-17] MEDS: LACTATED RINGER'S 1000ML 1,000 ML IV SCH ×4 (02:08→22:15)
[2017-05-17] MEDS: PIPERACILL/TAZOBAC IV 3.375 GM in DEXTROSE 5% 100ML 100 ML IV SCH ×3 (06:05→22:16)
--- NOTE | 2017-05-17 07:55 | Surgery Progress Note ---
Surgery Progress Note Date of Service May 17, 2017. Subjective still with some epigastric pain but improving Objective Vital Signs: Date Time Temp Pulse Resp B/P (MAP) Pulse Ox O2 Delivery O2 Flow Rate FiO2 05/17/17 07:40 Room Air 05/17/17 07:37 37.2 66 17 132/83 (99) 96 Room Air 05/17/17 00:00 Room Air 05/16/17 23:15 37.3 71 16 121/74 (90) 94 Room Air 05/16/17 16:16 37.7 05/16/17 15:20 Room Air General Appearance: no apparent distress Head: atraumatic Respiratory/Chest: no respiratory distress, no accessory muscle use Abdomen: soft, + pertinent finding (+mild epigastric ttp. no g/r/r) Laboratory Results: Results Past 24 Hours Test 05/17/17 04:44 Range/Units Assessment & Plan 05/16/17 MRCP does not show any biliary stones AM labs pending lap caleb later today pending labs discussed risks /options ( bleeding/infection/dvt/pe/injury to bile ducts/bowel etc...) questions answered/consent signed
[2017-05-17 08:11] LABS: BASO % 0.4 %; BASO ABS # 0.04 K/uL (0-0.2); COMPLETE YES; EOS % 1.2 %; HEMATOCRIT 40.4 % (37-47); IG% 0.4 %; LYMPH % 16.5 %; LYMPH ABS # 1.85 K/uL (1.2-3.4); MEAN CELL VOLUME 85.8 fL (80-100); MEAN CORPUSCULAR HEMOGLOBIN 29.7 pg (25-34); MEAN CORPUSCULAR HGB CONC 34.7 g/dl (32-36); MEAN PLATELET VOLUME 9.8 fL (7.4-10.4); MONO % 10.1 %; NEUT % 71.4 %; PLATELET COUNT 182 K/uL (130-400); RED BLOOD COUNT 4.71 M/uL (4.2-5.4); WHITE BLOOD COUNT 11.21 K/uL (4.8-10.8)
[2017-05-17 08:19] LABS: INR 1.2 (0.9-1.1); PROTHROMBIN TIME (PATIENT) 12.4 SECONDS (9.0-12.0)
[2017-05-17 08:37] LABS: BUN/CREATININE RATIO 11.2 (10-20); CREATININE 0.69 mg/dl (0.60-1.20); MAGNESIUM 1.9 mg/dl (1.8-2.4); POTASSIUM 3.7 mmol/L (3.5-5.1)
[2017-05-17] MEDS: METOPROLOL SUCC 25MG EXT REL TAB PO SCH (08:45)
[2017-05-17] MEDS: FAMOTIDINE IV INJ 20 MG in DEXTROSE 5% 100ML 100 ML IV SCH ×2 (08:46→21:12)
[2017-05-17] MEDS ORDERED: LIDOCAINE HCL 2% 2 ML VIAL (20MG/ML) ONE (11:42)
[2017-05-17] MEDS ORDERED: FENTANYL CITRATE INJ 50 MCG/1 ML 2 ML VIAL ONE ×2 (11:42→13:10)
[2017-05-17] MEDS ORDERED: NEOSTIGMINE METHYLSULFATE 5 MG/5 ML SYR ONE (11:42)
[2017-05-17] MEDS ORDERED: ONDANSETRON INJ 2 MG/ML 2 ML VIAL ONE (11:42)
[2017-05-17] MEDS ORDERED: GLYCOPYRROLATE INJ 0.2 MG/ML VIAL ONE (11:42)
[2017-05-17] MEDS ORDERED: PROPOFOL IV EMULSION 10 MG/ML 20 ML VIAL IV ONE (11:42)
[2017-05-17] MEDS ORDERED: DEXAMETHASONE SOD INJ 4 MG/ML VIAL ONE (11:42)
[2017-05-17] MEDS ORDERED: MIDAZOLAM HCL 1 MG/ML 2ML VIAL ONE (11:42)
[2017-05-17] MEDS ORDERED: ROCURONIUM BROMIDE 10 MG/ML 5 ML VIAL IV ONE (11:42)
[2017-05-17] MEDS ORDERED: BUPIVACAINE/EPINEPHRINE 0.5% MPF 1:200,000 30 ML VIAL ONE (12:13)
--- NOTE | 2017-05-17 12:26 | Hospitalist Progress Note ---
Hospitalist Progress Note Date of Service May 17, 2017. (Remedios Shepherd ., PARolandC) Subjective Pt evaluation today including: conversation w/ patient, physical exam, lab review, review of studies, review of inpatient medication list Voiding: no voiding problems Patient feeling well. +epigastric/RUQ abdominal discomfort, but improving. NPO. IVF infusing @ 150 ml/hr. Planning for lap caleb later this afternoon. No questions/concerns. Patient denies any fever, chills, sweats, lightheadedness, dizziness, vision changes, CP, palpitations, edema, SOB, wheezing, cough, nausea, vomiting, diarrhea, urinary symptoms, melena, numbness/tingling, weakness, muscle/joint pain, anxiety/depression, active bleeding, or new skin discoloration/changes. (Remeidos Shepherd ., AMBER-C) Medications Current Inpatient Medications Medications (Trade) Dose Ordered Sig/Mae Route Start Time Stop Time Status Last Admin Dose Admin Piperacillin Sod/ Tazobactam Sod (Consult) 1 ea UD PRN N/A 05/15/17 15:00 06/14/17 14:59 Metoprolol Succinate (Toprol Xl Tab) 12.5 mg DAILY PO 05/16/17 09:00 06/15/17 08:59 05/17/17 08:45 12.5 MG Piperacillin Sod/ Tazobactam Sod 3.375 gm/Dextrose 115 ml @ 28.75 mls/ hr Q8H IV 05/15/17 22:00 05/25/17 21:59 05/17/17 06:05 28.75 MLS/HR Ondansetron HCl (Zofran Inj) 4 mg Q6H PRN IV 05/15/17 15:45 06/14/17 15:44 Famotidine 20 mg/ Dextrose 102 ml @ 200 mls/hr Q12H IV 05/15/17 21:00 06/14/17 20:59 05/17/17 08:46 200 MLS/HR Hydromorphone HCl (Dilaudid Inj) 0.5 mg Q2H PRN IV 05/15/17 15:45 05/29/17 15:44 05/17/17 11:44 0.5 MG Lactated Ringer's 1,000 ml @ 150 mls/hr Q6H40M IV 05/15/17 20:00 06/14/17 19:59 05/17/17 08:44 150 MLS/HR Heparin Sodium (Porcine) (Heparin Sq 5000 Unit/0.5ml) 5,000 unit Q8 SQ 05/17/17 14:00 06/16/17 13:59 (Remedios Shepherd PA-C) Objective Vital Signs Date Time Temp Pulse Resp B/P (MAP) Pulse Ox O2 Delivery O2 Flow Rate FiO2 05/17/17 07:40 Room Air 05/17/17 07:37 37.2 66 17 132/83 (99) 96 Room Air 05/17/17 00:00 Room Air 05/16/17 23:15 37.3 71 16 121/74 (90) 94 Room Air 05/16/17 16:16 37.7 05/16/17 15:20 Room Air (Remedios Shepherd ., AMBER-C) Physical Exam General Appearance: no apparent distress Eyes: PERRL ENT: hearing grossly normal Neck: supple Respiratory/Chest: lungs clear, normal breath sounds, no respiratory distress, no accessory muscle use Cardiovascular: regular rate, rhythm Abdomen: normal bowel sounds, soft, + tenderness (RUQ/epigastric region ) Extremities: no pedal edema, no calf tenderness, + pertinent finding (SCDs on ) Neurologic/Psychiatric: alert, normal mood/affect, oriented x 3 Skin: normal color, warm/dry, no rash (Remedios Shepherd ., AMBER-C) Laboratory Results Last 24 Hours Test 05/17/17 08:03 05/17/17 08:04 Prothrombin Time 12.4 SECONDS Prothromb Time International Ratio 1.2 White Blood Count 11.21 K/uL Red Blood Count 4.71 M/uL Hemoglobin 14.0 g/dL Hematocrit 40.4 % Mean Corpuscular Volume 85.8 fL Mean Corpuscular Hemoglobin 29.7 pg Mean Corpuscular Hemoglobin Concent 34.7 g/dl Platelet Count 182 K/uL Mean Platelet Volume 9.8 fL Neutrophils (%) (Auto) 71.4 % Lymphocytes (%) (Auto) 16.5 % Monocytes (%) (Auto) 10.1 % Eosinophils (%) (Auto) 1.2 % Basophils (%) (Auto) 0.4 % Neutrophils # (Auto) 8.02 K/uL Lymphocytes # (Auto) 1.85 K/uL Monocytes # (Auto) 1.13 K/uL Eosinophils # (Auto) 0.13 K/uL Basophils # (Auto) 0.04 K/uL RDW Standard Deviation 42.2 fL RDW Coefficient of Variation 13.3 % Immature Granulocyte % (Auto) 0.4 % Immature Granulocyte # (Auto) 0.04 K/uL Sodium Level 138 mmol/L Potassium Level 3.7 mmol/L Chloride Level 104 mmol/L Carbon Dioxide Level 24 mmol/L Anion Gap 10.0 mmol/L Blood Urea Nitrogen 8 mg/dl Creatinine 0.69 mg/dl Est Creatinine Clear Calc Drug Dose 98.5 ml/min Estimated GFR () 115.2 Estimated GFR (Non- 99.4 BUN/Creatinine Ratio 11.2 Random Glucose 90 mg/dl Calcium Level 9.0 mg/dl Magnesium Level 1.9 mg/dl Total Bilirubin 0.7 mg/dl Direct Bilirubin 0.3 mg/dl Aspartate Amino Transf (AST/SGOT) 66 U/L Alanine Aminotransferase (ALT/SGPT) 208 U/L Alkaline Phosphatase 85 U/L Total Protein 6.9 gm/dl Albumin 2.9 gm/dl Amylase Level 385 U/L Lipase 1284 U/L (Remedios Shepherd, RAMILAC) Assessment and Plan The patient is a 51-year-old female who presents to the emergency department with worsening intermittent abdominal pain, pressure, chills, sweats and nausea that began about one week prior to arrival. She has not had any vomiting until having 4 episodes prior to coming into the ED today. She does report a change in her bowel movements alternating between soft and hard. She felt that her acid reflux have been worse in general recently due to work stress. She has not had any recent travels or sick exposures Acute cholecystitis due to cholelithiasis w/ pancreatitis: - Admit to the med/surg - NPO except meds- advance per general surgery recommendations - Zosyn 3.375 mg IV every 8 hours - IVF @ 150 ml/hr - Zofran 4 mg IV every 6 hours PRN - Famotidine 20 mg IV BID - Dilaudid 0.5 mg IV every 2 hours PRN - Serial CBC with differential, BMP, LFTs, amylase and lipase -- CBC and BMP- STABLE -- Elevated LFTs, amylase, and lipase- IMPROVING - Consult general surgery, appreciate recommendations -- MRCP- no cystic duct or common bile duct dilation or obstructing biliary stones identified -- Planning for lap caleb on 05/17 Elevated INR at 1.2, likely secondary to above: Repeat INR tomorrow ?Arrhythmia- ?PAC vs PVC: - Continue Metoprolol succinate ER 12.5 mg daily w/ hold parameters - Per patient, has some type of "flutter"- denies a.fib/a.flutter- states she was workup up this past summer w/ EKGs, ECHO, and Holter monitor- placed on Metoprolol and symptoms improved- no outpatient records available HTN: Metoprolol as above Hyperlipidemia: Hold Simvastatin 10 mg HS until tolerating PO Osteoarthritis: Hold Meloxicam 15 mg QAM until tolerating PO GI Prophylaxis: Pepcid DVT prophylaxis: Heparin SQ TID Code Status: LEVEL I, FULL Dispo: From home, no discharge needs anticipated (Remedios Shepherd, PA-C) I agree with PA assessment and plan and have seen and examined pt myself Resting comfortably in bed States abd pain improved Noted lipase level reduced in 1000s MRCP completed no CBD dilation or biliary stones noted, awaiting lap caleb at this time Appreciate gen surg recs (Lobo Milton, D.O.)
[2017-05-17] MEDS ORDERED: PROMETHAZINE HCL INJ 6.25 MG in SODIUM CHLORIDE 0.9% 50ML 50 ML IV PRN (12:30)
[2017-05-17] MEDS ORDERED: ATROPINE SULFATE 0.1 MG/ML 5ML SYR IV PRN (12:30)
[2017-05-17] MEDS ORDERED: HYDROmorphone INJ 1 MG/ML SYR IV PRN (12:30)
[2017-05-17] MEDS ORDERED: ONDANSETRON INJ 2 MG/ML 2 ML VIAL IV PRN (12:30)
[2017-05-17] MEDS ORDERED: EpHEDrine SULFATE INJ 50 MG/ML AMP IV PRN (12:30)
--- NOTE | 2017-05-17 12:33 | History & Physical Bridge Note ---
H&P Re-Evaluation Bridge Note: I have examined the patient, reviewed the History & Physical and in the interval since the performance of the History & Physical I have noted the following changes of clinical significance: No changes noted
[2017-05-17] MEDS: HEPARIN SOD 5000 UNIT/0.5 ML CARP SQ SCH ×2 (14:00→22:26)
--- NOTE | 2017-05-17 14:10 | [facility] Operative Report ---
Operative Report Operative Date May 17, 2017. Pre-Operative Diagnosis cholecystitis & Gall stone pancreatitis Post-Operative Diagnosis cholecystitis & Gall stone pancreatitis Procedure(s) Performed Laparoscopic Cholecystectomy Surgeon Dr. Padgett [employer] Surgeon(s) Nancy Smith PA-C Estimated Blood Loss 10mL Findings acutely inflammed gallbladder with stones Specimens A: Gallbladder & Contents Anesthesia get Complication(s) None Disposition Recovery Room / PACU Description of Procedure After informed consent was obtained the patient was taken to the operating room and placed in supine position. After successful intubation the abdomen was sterilely prepped and draped in usual fashion. A supraumbilical incision was made with an 11 blade scalpel and carried down through the soft tissue using electrocautery. The anterior rectus fascia was opened using electrocautery and 2 #0 Vicryl stay sutures were placed. Peritoneum was entered using blunt finger penetration and a finger sweep was performed. A 12 mm Ernst trocar was placed and the abdomen was insufflated 18 mmHg. The laparoscope was inserted and the abdomen was examined in 360. A subxiphoid 12 mm port and 2 right upper quadrant 5 mm ports were placed under direct vision the patient was placed in reverse Trendelenburg position slightly airplaned to the left. The gallbladder was acutely inflamed. We were able to wait peel-away some of the adhesions from the neck. I then used a gallbladder needle and 30 mL syringe to suction some of the bile out so that we could more readily grab the gallbladder. It was grasped and elevated superiorly and laterally. Blunt dissection was used to skeletonize the cystic duct. It was clipped twice proximally once distally and transected. In similar fashion the cystic artery was identified skeletonized clipped and divided. The gallbladder was removed from the gallbladder fossa with electrocautery. It was acutely inflamed and rather intrahepatic. A small hole was made in the during this process releasing one large gallstone and several small ones. After we finished removing it we placed it into an Endo Catch bag. We placed all of the visible stones in the bag as well. Any bleeding points were controlled using electrocautery and then the right upper quadrant was thoroughly irrigated until all irrigant was clear. We did look around the rest of the upper abdomen and saw no other gross abnormalities. The gallbladder trochars were all removed under direct vision and the abdomen was desufflated. The fascia of the camera port was closed using 0 Vicryl in a [id number] fashion. All the wounds were irrigated closed using 4-0 Monocryl. Marcaine was injected around for postoperative analgesia and skin glue used as a dressing. The patient was awakened extubated and transferred recovery in stable condition I attest to the content of the Intraoperative Record and any orders documented therein. Any exceptions are noted below.
[2017-05-17] MEDS: FENTANYL CITRATE INJ 50 MCG/1 ML 2 ML VIAL IV PRN ×2 (14:45→14:50)
--- NOTE | 2017-05-17 14:49 | Anesthesiology Progress Note ---
Anesthesia Post Op Note Date & Time May 17, 2017 at 14:49 Vital Signs Pain Intensity: 8.0 Vital Signs Past 12 Hours Date Time Temp Pulse Resp B/P (MAP) Pulse Ox O2 Delivery O2 Flow Rate FiO2 05/17/17 14:35 74 20 129/71 97 Nasal Cannula 2 05/17/17 14:25 71 20 132/70 100 Oxymask 10 05/17/17 14:15 74 19 128/86 98 Oxymask 10 05/17/17 14:11 36.7 78 16 127/50 98 Oxymask 10 05/17/17 07:40 Room Air 05/17/17 07:37 37.2 66 17 132/83 (99) 96 Room Air Notes Mental Status: alert / awake / arousable, participated in evaluation Pt Amnestic to Procedure: Yes Nausea / Vomiting: adequately controlled Pain: adequately controlled Airway Patency, RR, SpO2: stable & adequate BP & HR: stable & adequate Hydration State: stable & adequate Anesthetic Complications: no major complications apparent
[2017-05-17] MEDS ORDERED: DOCUSATE SODIUM 100 MG CAP PO ONE (22:48)
[2017-05-17] MEDS: HYDROCODONE/ACETAMOPHEN 5/325MG TAB PO PRN (23:18)
[2017-05-18 04:00] VITALS: BP 116/75; PULSE 65; TEMP 36.5; O2SAT 97
[2017-05-18] MEDS: LACTATED RINGER'S 1000ML 1,000 ML IV SCH (05:55)
[2017-05-18] MEDS: PIPERACILL/TAZOBAC IV 3.375 GM in DEXTROSE 5% 100ML 100 ML IV SCH ×2 (05:55→13:35)
[2017-05-18] MEDS: HEPARIN SOD 5000 UNIT/0.5 ML CARP SQ SCH ×2 (06:04→13:42)
[2017-05-18 07:11] VITALS: BP 127/79; PULSE 51; TEMP 36.5; O2SAT 98
[2017-05-18 07:12] LABS: BASO % 0.1 %; BASO ABS # 0.01 K/uL (0-0.2); COMPLETE YES; EOS % 0.1 %; HEMATOCRIT 45.1 % (37-47); IG% 0.2 %; LYMPH % 11.1 %; LYMPH ABS # 1.44 K/uL (1.2-3.4); MEAN CELL VOLUME 86.1 fL (80-100); MEAN CORPUSCULAR HEMOGLOBIN 28.6 pg (25-34); MEAN CORPUSCULAR HGB CONC 33.3 g/dl (32-36); MEAN PLATELET VOLUME 10.2 fL (7.4-10.4); MONO % 6.7 %; NEUT % 81.8 %; PLATELET COUNT 235 K/uL (130-400); RED BLOOD COUNT 5.24 M/uL (4.2-5.4); WHITE BLOOD COUNT 12.95 K/uL (4.8-10.8)
[2017-05-18 07:19] LABS: INR 1.1 (0.9-1.1); PROTHROMBIN TIME (PATIENT) 11.5 SECONDS (9.0-12.0)
[2017-05-18 07:44] LABS: ALKALINE PHOSPHATASE 94 U/L (45-117); ALT/SGPT 242 U/L (12-78); AMYLASE 161 U/L (25-115); BLOOD UREA NITROGEN 10 mg/dl (7-18); BUN/CREATININE RATIO 13.3 (10-20); CALCIUM 9.8 mg/dl (8.5-10.1); CARBON DIOXIDE 23 mmol/L (21-32); CHLORIDE 103 mmol/L (98-107); CREATININE 0.76 mg/dl (0.60-1.20); GLUCOSE 103 mg/dl (70-99); SODIUM 137 mmol/L (136-145)
[2017-05-18] MEDS ORDERED: HYDR-5688 PO (08:28)
[2017-05-18] MEDS ORDERED: NURSING VERBAL MED ORDER ONE ×2 (08:30→08:45)
--- NOTE | 2017-05-18 08:31 | Discharge Instructions ---
Discharge Instructions Date of Service May 18, 2017. Admission Reason for Admission: Acute Cholecystitis, Gallstone Pancreatitis Discharge Discharge Diagnosis / Problem: laparoscopic cholecystectomy Discharge Goals Goal(s): Decrease discomfort Activity Recommendations Activity Limitations: as noted below Lifting Limitations: no more than 10 pounds Shower/Bathe: no limitations (ok to shower) Driving or Machine Use: resume 3 days after discharge . Instructions / Follow-Up Instructions / Follow-Up Dr. Padgett in 2 weeks, call [phone] to schedule, [address] Current Hospital Diet Patient's current hospital diet: Clear Liquid Diet Discharge Diet Recommended Diet: Low Fat Diet (for a few days) Procedures Procedures Performed: Laparoscopic Cholecystectomy Pending Studies Studies pending at discharge: no Work Instructions Return To Work: 1 week Medical Emergencies . Who to Call and When: Medical Emergencies: If at any time you feel your situation is an emergency, please call 911 immediately. . Non-Emergent Contact Non-Emergency issues call your: Surgeon Call Non-Emergent contact if: you have a fever, temperature is above 101.5, your pain is not controlled, you have any medication questions . "Provider Documentation" section prepared by Eusebio Quiñones. . VTE Core Measure Inpt VTE Proph given/why not?: Unfractionated heparin SQ, SCD's [place] Drug Monitoring Program Search Results: no issues identified
[2017-05-18 08:45] LABS: MAGNESIUM 2.2 mg/dl (1.8-2.4); POTASSIUM 3.8 mmol/L (3.5-5.1)
--- NOTE | 2017-05-18 08:53 | Surgery Progress Note ---
Surgery Progress Note Date of Service May 18, 2017. Subjective Post OP Day: 1 + feeling well, + diet (clears), No nausea Objective Vital Signs: Date Time Temp Pulse Resp B/P (MAP) Pulse Ox O2 Delivery O2 Flow Rate FiO2 05/18/17 07:15 Room Air 05/18/17 07:11 36.5 51 16 127/79 (95) 98 Room Air 05/18/17 04:00 36.5 65 16 116/75 (89) 97 Room Air 05/17/17 23:45 Room Air 05/17/17 22:53 37.0 63 18 132/67 (88) 93 Room Air 05/17/17 18:43 36.6 79 18 114/68 (83) 93 Room Air 05/17/17 17:29 68 16 109/58 (75) 94 Room Air 05/17/17 16:32 36.4 69 18 122/77 (92) 94 Nasal Cannula 1.0 05/17/17 16:00 69 18 122/75 (91) 96 Nasal Cannula 1.0 05/17/17 15:40 98 Nasal Cannula 2.0 05/17/17 15:40 98 Nasal Cannula 2.0 05/17/17 15:30 37.0 75 18 120/77 (91) 98 Nasal Cannula 2.0 05/17/17 15:15 72 17 117/63 95 Nasal Cannula 2 05/17/17 15:05 36.7 73 16 111/71 97 Nasal Cannula 2 05/17/17 14:55 72 15 117/65 94 Nasal Cannula 2 05/17/17 14:45 75 17 131/70 97 Nasal Cannula 2 05/17/17 14:35 74 20 129/71 97 Nasal Cannula 2 05/17/17 14:25 71 20 132/70 100 Oxymask 10 05/17/17 14:15 74 19 128/86 98 Oxymask 10 05/17/17 14:11 36.7 78 16 127/50 98 Oxymask 10 Abdomen: soft Incision(s): clean, dry Laboratory Results: Results Past 24 Hours Test 05/18/17 06:30 05/18/17 08:14 Range/Units White Blood Count 12.95 4.8-10.8 K/uL Red Blood Count 5.24 4.2-5.4 M/uL Hemoglobin 15.0 12.0-16.0 g/dL Hematocrit 45.1 37-47 % Mean Corpuscular Volume 86.1 80-100 fL Mean Corpuscular Hemoglobin 28.6 25-34 pg Mean Corpuscular Hemoglobin Concent 33.3 32-36 g/dl Platelet Count 235 130-400 K/uL Mean Platelet Volume 10.2 7.4-10.4 fL Neutrophils (%) (Auto) 81.8 % Lymphocytes (%) (Auto) 11.1 % Monocytes (%) (Auto) 6.7 % Eosinophils (%) (Auto) 0.1 % Basophils (%) (Auto) 0.1 % Neutrophils # (Auto) 10.59 1.4-6.5 K/uL Lymphocytes # (Auto) 1.44 1.2-3.4 K/uL Monocytes # (Auto) 0.87 0.11-0.59 K/uL Eosinophils # (Auto) 0.01 0-0.5 K/uL Basophils # (Auto) 0.01 0-0.2 K/uL RDW Standard Deviation 42.1 36.4-46.3 fL RDW Coefficient of Variation 13.3 11.5-14.5 % Immature Granulocyte % (Auto) 0.2 % Immature Granulocyte # (Auto) 0.03 0.00-0.02 K/uL Prothrombin Time 11.5 9.0-12.0 SECONDS Prothromb Time International Ratio 1.1 0.9-1.1 Sodium Level 137 136-145 mmol/L Potassium Level 3.8 3.5-5.1 mmol/L Chloride Level 103 98-107 mmol/L Carbon Dioxide Level 23 21-32 mmol/L Anion Gap 11.0 3-11 mmol/L Blood Urea Nitrogen 10 7-18 mg/dl Creatinine 0.76 0.60-1.20 mg/dl Est Creatinine Clear Calc Drug Dose 89.5 ml/min Estimated GFR () 103.8 Estimated GFR (Non- 89.6 BUN/Creatinine Ratio 13.3 10-20 Random Glucose 103 70-99 mg/dl Calcium Level 9.8 8.5-10.1 mg/dl Magnesium Level 2.2 1.8-2.4 mg/dl Total Bilirubin 0.6 0.2-1 mg/dl Direct Bilirubin 0.2 0-0.2 mg/dl Aspartate Amino Transf (AST/SGOT) 122 15-37 U/L Alanine Aminotransferase (ALT/SGPT) 242 12-78 U/L Alkaline Phosphatase 94 45-117 U/L Total Protein 8.5 6.4-8.2 gm/dl Albumin 3.3 3.4-5.0 gm/dl Amylase Level 161 25-115 U/L Lipase 416 73-393 U/L Assessment & Plan s/p lap caleb for biliary pancreatitis stable post op LFTs normalizing advance diet home today per primary if tolerates diet
[2017-05-18] MEDS: METOPROLOL SUCC 25MG EXT REL TAB PO SCH (09:00)
[2017-05-18] MEDS ORDERED: PANTOprazole SOD 40 MG TAB PO SCH (09:00)
[2017-05-18] MEDS ORDERED: DOCUSATE SODIUM 100 MG CAP PO SCH (09:00)
[2017-05-18 09:10] VITALS: BP 119/71; PULSE 63
[2017-05-18] MEDS ORDERED: PRT40 PO (10:33)
--- NOTE | 2017-05-18 10:36 | Discharge Instructions ---
Discharge Instructions Date of Service May 18, 2017. Admission Reason for Admission: Acute Cholecystitis, Gallstone Pancreatitis Discharge Discharge Diagnosis / Problem: Acute cholecystitis, pancreatitis Discharge Goals Goal(s): Decrease discomfort, Improve function, Increase independence, Improve disease control, Learn about illness, Diagnostic testing, Therapeutic intervention, Prevent Disease Progression Activity Recommendations Activity Limitations: resume your previous activity Exercise/Sports Limitations: as tolerated . Instructions / Follow-Up Instructions / Follow-Up Patient to be discharged home Please follow up with Dr Padgett in 2 weeks Follow up with Carrie Rodriguez in 1-2 weeks Please take pain medicine norco 5/325 every 4 hrs only as needed for pain Will also provide protonix one tablet daily for reflux If worsening pain or fever please report to ER Current Hospital Diet Patient's current hospital diet: Low Fat Diet Discharge Diet Recommended Diet: Low Fat Diet Procedures Procedures Performed: Laparoscopic Cholecystectomy Pending Studies Studies pending at discharge: no Work Instructions Return To Work: 1 week Medical Emergencies . Who to Call and When: Medical Emergencies: If at any time you feel your situation is an emergency, please call 911 immediately. . Non-Emergent Contact Non-Emergency issues call your: Primary Care Provider Call Non-Emergent contact if: you have a fever, your pain is worsening . . "Provider Documentation" section prepared by Lobo Milton. . VTE Core Measure Inpt VTE Proph given/why not?: Unfractionated heparin SQ, SCD's
[2017-05-18] MEDS: HYDROCODONE/ACETAMOPHEN 5/325MG TAB PO PRN (12:42)
[2017-05-18 13:24] VITALS: BP 119/71; PULSE 63; TEMP 36.5; O2SAT 98
--- NOTE | 2017-05-18 14:41 | Discharge Summary ---
Discharge Summary Date of Service May 18, 2017. Discharge Summary Admission Date: May 15, 2017 at 15:38 Discharge Date: May 18, 2017 Discharge Disposition: Home Principal Diagnosis: Acute cholecystitis, pancreatitis Immunizations: Have You Had Influenza Vaccine: Unknown History of Tetanus Vaccine?: Unknown History of Pneumococcal: Unknown History of Hepatitis B Vaccine: Unknown Consultations: General surgery Medication Reconciliation New Medications: Hydrocodone/Acetaminophen 5MG/325MG ([place] 5MG/325MG) Tab 1-2 TABLET PO Q4H PRN for Pain, #30 TAB Pantoprazole (Pantoprazole Sodium) 40 Mg Tab 40 MG PO QAM, #30 TAB Continued Medications: Cholecalciferol (Vitamin D3) 1,000 Inter.unit Tab 2000 INTER.UNIT PO QAM Meloxicam (Mobic) 15 Mg Tab 15 MG PO QAM, TAB Metoprolol Succinate (Metoprolol Succinate ER) 25 Mg Tabcr 12.5 MG PO DAILY Multiple Vitamin (Multivitamin) 1 Tab Tab 1 TAB PO QAM, TAB Simvastatin (Simvastatin) 10 Mg Tab 1 TAB PO HS Valacyclovir (Valtrex) 1,000 Mg Tab 2 GM PO DAILY PRN for COLD SORES, TAB Discharge Exam Review of Systems: Constitutional: No fever, No chills, No sweats, No weakness Eyes: No worsening of vision, No eye pain, No redness, No discharge Respiratory: No cough, No sputum, No wheezing, No shortness of breath Cardiovascular: No chest pain, No orthopnea, No PND, No edema Abdomen: No pain, No nausea, No vomiting, No diarrhea, No constipation Musculoskeletal: No joint pain, No muscle pain, No swelling, No calf pain Genitourinary - Female: No dysuria, No urinary frequency, No urinary urgency , No urinary incontinence Neurologic: No memory loss, No paralysis, No weakness, No numbness/tingling Psychiatric: No depression symptoms, No anhedonism, No anxiety, No insomnia Endocrine: No fatigue, No excessive thirst Integumentary: No rash, No itch Physical Exam: General Appearance: WD/WN, no apparent distress Eyes: normal inspection, PERRL, EOMI, sclerae normal Neck: supple, no adenopathy, thyroid normal, no JVD Respiratory/Chest: chest non-tender, lungs clear, normal breath sounds, no respiratory distress Cardiovascular: regular rate, rhythm, no edema, no gallop, no JVD Abdomen / GI: normal bowel sounds, non tender, soft, no organomegaly Extremities: normal inspection, no calf tenderness, normal capillary refill , no pedal edema Neurologic/Psychiatric: no motor/sensory deficits, alert, normal mood/affect , oriented x 3 Skin: normal color, warm/dry, no rash Lymphatic: no adenopathy Hospital Course The patient is a 51-year-old female who presents to the emergency department with worsening intermittent abdominal pain, pressure, chills, sweats and nausea that began about one week prior to arrival. She has not had any vomiting until having 4 episodes prior to coming into the ED today. She does report a change in her bowel movements alternating between soft and hard. She felt that her acid reflux have been worse in general recently due to work stress. She has not had any recent travels or sick exposures Acute cholecystitis due to cholelithiasis w/ pancreatitis: - Admit to the med/surg - NPO except meds- advance per general surgery recommendations - Zosyn 3.375 mg IV every 8 hours - IVF @ 150 ml/hr - Zofran 4 mg IV every 6 hours PRN - Famotidine 20 mg IV BID - Dilaudid 0.5 mg IV every 2 hours PRN - Serial CBC with differential, BMP, LFTs, amylase and lipase -- CBC and BMP- STABLE -- Elevated LFTs, amylase, and lipase- IMPROVING - Consult general surgery, appreciate recommendations -- MRCP- no cystic duct or common bile duct dilation or obstructing biliary stones identified -- Lap caleb on 05/17, diet advanced and discharged home on 05/18 with norco PRN and protonix Elevated INR at 1.2, likely secondary to above: Repeat INR tomorrow with resolved INR ?Arrhythmia- ?PAC vs PVC: - Continue Metoprolol succinate ER 12.5 mg daily w/ hold parameters - Per patient, has some type of "flutter"- denies a.fib/a.flutter- states she was workup up this past summer w/ EKGs, ECHO, and Holter monitor- placed on Metoprolol and symptoms improved- no outpatient records available HTN: Metoprolol as above Hyperlipidemia: Hold Simvastatin 10 mg HS until tolerating PO Osteoarthritis: Hold Meloxicam 15 mg QAM until tolerating PO GI Prophylaxis: Pepcid DVT prophylaxis: Heparin SQ TID Code Status: LEVEL I, FULL Total Time Spent: Greater than 30 minutes This includes examination of the patient, discharge planning, medication reconciliation, and communication with other providers. Discharge Instructions Please refer to the electronic Patient Visit Report (Discharge Instructions) for additional information. Additional Copies To Carrie Rodriguez C.R.N.P.
[2017-05-18 15:08] VITALS: BP 125/76; PULSE 61; TEMP 37; O2SAT 98
== END 2017-05-18 17:00 | disposition home or self-care (01) | DRG 417 ==
LOC: C.EDB 10:13 → C.MSW 15:38 → ENRESERV 15:49
PROVIDERS: ADMIT Hospitalist; ATTEND Hospitalist
PROC: 0FT44ZZ Resection of Gallbladder, Percutaneous Endoscopic Approach (ICD-10-PCS; principal; 2017-05-17 07:00)
DX: K80.00 Calculus of gallbladder with acute cholecystitis without obstruction (principal); K85.90 Acute pancreatitis without necrosis or infection, unspecified; I49.9 Cardiac arrhythmia, unspecified; I10 Essential (primary) hypertension; E78.5 Hyperlipidemia, unspecified; M19.90 Unspecified osteoarthritis, unspecified site; Z79.1 Long term (current) use of non-steroidal anti-inflammatories (NSAID); Z79.899 Other long term (current) drug therapy